=== PATIENT | female | born 1955 | race Hispanic/Latino ===

== ENCOUNTER 2025-07-16 00:47 | Day surgery (SDC) | payer MEDICARE, MEDICAID, SELFPAY ==
--- OUTSIDE RECORDS SUMMARY | 2015-11-24 10:00 | XMS_ITS | Continuity of Care Document ---
Author Organization [facility] Address [address] [place] [address] Phone Care Team Providers Care Automotive Hardware Engineer Name Role Phone Unavailable Unavailable Unavailable Unavailable Unavailable Unavailable Allergies, Adverse Reactions, Alerts Substance Reaction Status Criticality ibuprofen HIVES(moderate) Active No Informati on Procedures Procedure Date Dental prophylaxis adult Extraction erupted tooth or exposed root Extraction erupted tooth or exposed root Surgical removal of residual roots Dental prophylaxis adult Full [facility] Series Of Radiographic Image s Dental Panoramic Radiographic Image Comprehensve oral evaluation Advance Directives Directive Yes / No Effective Date File Name No Information Encounters Encounter Description Practice Location Reason(s) For Visit Diagnoses Date Provider Providers Copied on Encounter [facility], [address], [place], [place], [id number] , [place] tel: [phone] [facility] Acute gingivitis, plaque inducedPeriapical abscess with sinusImpacted teeth 6 No Information [facility], [address], [place], [place], [id number] , [place] tel: [phone] [facility] No Information 6 No Information [facility], [address], [place], [place], [id number] , [place] tel: [phone] [facility] Encounter for dental exam and cleaning w abnormal findingsDental caries, unspecified 5 No Information [facility], [address], [place], [place], [id number] , [place] tel: [phone] Care Guidelines Tru-0 1-190 1 No Information Family History Family Member Type Diagnosis Age At Onset No Information Payers Payer name Insurance type Covered republican ID Authoriza tion(s) No Information Social History Type Description Quantity Date Captured Comments Sex Female Smoking Status No Information Chief Complaint And Reason For Visit No Information Reason For Referral Reason For Referral No Information History Of Present Illness Encounter Date Complaint History Of Prese nt Illness No Information Functional Status Date Functional Assessmen t No Information Instructions Date Instruction Additional Infor mation No Information Assessments Type Assessment Date No Information Patient Care Teams Name Effective Dates (start - stop) Status Members No Information
[2025-07-01 12:54] VITALS: BMI 26.7
--- OUTSIDE RECORDS SUMMARY | 2025-07-16 00:50 | XMS_ITS | Clinical Summary ---
Author Organization [facility] Address [address] [place] [address] Care Team Providers Care Dough Puncher Name Role Phone Unavailable Primary Care Provider Unavailabl e Social History Tobacco Use Types Packs/Day Years Used Date Smoking Tobacco: Never Assessed Comments Unknown Sex and Gender Information Value Date Recorded Sex Assigned at Not on file Legal Sex Female 1:58 PM CDT Gender Identity Not on file Sexual Orientation Not on file Plan of Treatment Health Maintenance Due Date Last Done Comments Colorectal Cancer Screening Colonoscopy (10 Years) 1956 Hepatitis C 1974 DTaP, Tdap and Td Vaccines ( 1 - Tdap) 1975 Mammogram Screening 1996 Pneumococcal Vaccine: 50+ Ye ars (1 of 1 - PCV) 2006 Zoster Vaccines (1 of 2) 2006 Dexa Scan (General) 2021 COVID-19 Vaccine ( - 2023-2 5 season) 2024 RSV Immunization or 60+ Years (1 - 1-dose 75+ series) 2031 Meningococcal B Vaccine Aged Out No l onger eligible based on patient's age to complete this topic Meningococcal Vaccine Aged Out No monica emma eligible based on patient's age to complete this topic RSV Immunizations Under 20 Months Aged Out No longer eligible based on patient's age to complete this topic
--- OUTSIDE RECORDS SUMMARY | 2025-07-16 00:50 | XMS_ITS | Clinical Summary ---
Author Organization [facility] Address [address] [place] [address] Care Team Providers Care Complex Director Name Role Phone Fidelina Bradshaw Primary Care Provider [phone] Allergies Active Allergy Reactions Criticality Noted Date Comments Aspirin Rash Medium 08/24/2022 Ibuprofen Rash Medium 01/18/2022 Medications atorvastatin (LIPITOR) 20 mg tablet Take 20 mg by mouth nightly Active losartan (COZAAR) 25 mg tablet Take 25 mg by mouth nightly Active phenazopyridine (Pyridium) 100 mg tablet Take 1 tablet (100 mg total) by mouth 3 (three) times a day as needed for urinary pain for up to 30 doses 30 tablet 01/28/2022 Active oxybutynin XL (DITROPAN-XL) 10 mg 24 hr tablet Take 1 tablet (10 mg total) by mouth daily 90 tablet 3 08/24/2022 Active Active Problems Problem Noted Date Diagnosed Date Ureteral stone with hydronephrosis 01/18/2022 Surgical History Surgery Date Site/Laterality Comments APPENDECTOMY CYSTOSCOPY W/ URETERAL STENT PLACEMENT Ri ght TUBAL LIGATION Medical History Medical History Date Comments HTN (hypertension) Hyperlipidemia Sleep apnea not offically di agnosed Kidney stone Blood pressure abnormally low af ter surgery GERD (gastroesophageal reflux disease) Wears dentures Anemia Social History Tobacco Use Types Packs/Day Years Used Date Smoking Tobacco: Never AUDIT-C Answer Date Recorded Q1: How often do you have a drink containing alc ohol? Never 02/01/2022 Average Number of Drinks Not on file 022 Q3: How often do you have si x or more drinks on one occasion? Never 02/01/2022 Comments Unknown Sex and Gender Information Value Date Recorded Sex Assigned at Not on file Legal Sex Female 9:03 AM VENEER SUPERVISOR Gender Identity Not on file Sexual Orientation Not on file Obstetrics History Last Filed Vital Signs Vital Sign Reading Time Taken Comments Blood Pressure 132/69 02/01/2022 2:25 PM CDT Pulse 65 02/01/2022 2:25 PM CDT Temperature 36.1 C (97 F) 02/01/2022 2:25 PM CDT Respiratory Rate 18 02/01/2022 2:25 PM CDT Oxygen Saturation 99% 02/01/2022 2:25 PM CDT Inhaled Oxygen Concentration - - Weight 80 kg (176 lb 5.9 oz) 01/18/2022 9:11 AM VENEER SUPERVISOR Height 170.2 cm (5' 7) 01/18/2022 9:11 AM VENEER SUPERVISOR Body Mass Index 27.62 01/18/2022 9:11 AM VENEER SUPERVISOR Plan of Treatment Health Maintenance Due Date Last Done Comments Breast Cancer Screening-Mammogram 1955 Colon Cancer Screening-Colonoscopy 1955 Depression Screening 1955 Osteoporosis Screening-Bone Density Scan 1956 Hepatitis B Screening 1974 Pneumococcal vaccine 65+ (1 of 1 - PCV) 2006 Zoster Vaccine (1 of 2) 2006 DTaP/Tdap/Td Vaccine (1 - Tdap) 10/03/2014 4 Well Visit 65+ 2021 Fall Risk Assessment 01/31/2023 01/31/2022 Covid-19 Vaccine (3 - season) 2024, 01/15/2021 Influenza Vaccine (#1) 2025 10/02/2014 Hepatitis C Screening Completed 01/21/2022 Medical Devices Explanted Type Area Stone Unloader Device Identifier Shelf Expiration Date Model / Serial / Lot [employer] [id number] Universa 6fr 26cm Radiopaque Positioner Monofilament Tether 2 - [id number] Implanted:Qty: 1 on 01/18/2022 by Tristan Angel MD at [facility] Explanted:Qty: 1 on 02/01/2022 by Tristan Angel MD at [facility] Right: [employer] [place] Miguel [place] [id number] 08/06/2024 [id number] / / [id number] Procedures Procedure Name Priority Date/Time Associated Diagnosis Comments HEPATITIS PANEL, ACUTE Add-On 01/21/2022 12:33 PM VENEER SUPERVISOR from Last 3 Months or Most Recently Relevant to Health Maintenance Results * Hepatitis panel, acute (01/21/2022 12:33 PM VENEER SUPERVISOR) Hep A IgM Nonreactive Nonreactive [facility]ALANI Comment: Interpretive Data: If Hep A IgM Ab is reported as Equivocal, a new sample should be drawn in two weeks for testing. Current interpretive data was last revised on 20. Hep B core IgM Nonreactive Nonreactive KALANI Comment: Interpretive Data If HepB Core IgM Ab is reported as Equivocal, a new sample should be drawn in two weeks for testing. Current interpretive data was last revised on 20. Testing performed by: [facility], [address] [place]., [address] Hep C Ab Nonreactive Nonreactive KALANI Comment: Interpretive Data Nonreactive: Antibodies to HCV not detected. Does NOT exclude the possibility of recent exposure to HCV. Equivocal: Equivocal for HCV antibodies. Supplemental molecular testing will be automatically performed to determine infection status in accordance with current CDC screening recommendations. Reactive: Positive for HCV antibodies. This may represent current or past HCV infection. Supplemental molecular testing will be automatically performed to determine current infection status in accordance with current CDC screening recommendations. Interpretive data was last revised on 2020. Testing performed by: [address] [address] HepBsAg Nonreactive Nonreactive KALANI Comment:Testing performed by : [address] [address] Blood 01/21/2022 12:3 3 PM VENEER SUPERVISOR 01/21/2022 1:04 PM VENEER SUPERVISOR Sky Priest MD LAB MICROBIOLOGY - GENERAL ORDERABLES Edited Result - Final [facility] [place] [address] [facility] [place] [address] from Last 3 Months or Most Recently Relevant to Health Maintenance Insurance IDPA [facility] MEDICARE ADVANTAGE IDPA MEDICARE MEDICARE [facility] Advance Directives For more information, please contact: [phone] * Full Code (Latest Code Status on File) Date Activated Date Inactivated Comments 01/18/2022 5:45 PM 01/22/2022 4:36 PM Care Teams Complex Director Relationship Specialty Start [place] [address] [place] [id number] PCP - General Physician Motor Vehicle Examiner 02/02/22
--- OUTSIDE RECORDS SUMMARY | 2025-07-16 00:50 | XMS_ITS | Clinical Summary ---
Author Organization [facility] Address [address] [place] [address] Care Team Providers Care Senior Publications Specialist Name Role Phone Unavailable Primary Care Provider Unavailabl e Immunizations Immunization Administration Dates Next Due Covid-19 Vaccine, Vector-nr, Rs-ad26, Pf, 0.5 Ml (Scratch Hard/Kamelio&Kamelio) 10/26/2021 Social History Tobacco Use Types Packs/Day Years Used Date Smoking Tobacco: Never Assessed Comments Unknown Sex and Gender Information Value Date Recorded Sex Assigned at Not on file Legal Sex Female 6:41 PM DIRECTOR [employer] Gender Identity Not on file Sexual Orientation Not on file Plan of Treatment Health Maintenance Due Date Last Done Comments Hepatitis C Virus (HCV) Screening 1955 TdaP Immunization 1956 Cologuard 2001 Colonoscopy 2001 Colorectal Cancer Screening 2001 Immunochemical Fecal Occult Blood 2001 Pneumococcal Immunization (5 0+ years) (1 of 1 - PCV) 2006 Zoster Immunization (1 of 2) 2006 SARS-COV-2 Immunization ( - season) 2024 10/26/2021, 01/15/2021 Influenza Immunization (#1) 2025 10/02/2014 Respiratory Syncytial Virus (RSV) Immunization (Adult) (1 - 1-dose 75+ series) 2031 DTaP/Tdap/Td Immunization Discontinued 10/02/2014 Hepatitis B Immunization Aged Out No longer eligible based on patient's age to complete this topic Human Papillomavirus (HPV) Immunization Aged Out No longer eligible based on patient's age to complete this topic Meningococcal Immunization (ACWY) Aged Out No longer eligible based on patient's age to complete this topic Rotavirus Immunization Aged Out No lo nger eligible based on patient's age to complete this topic
[2025-07-16 11:40] VITALS: BP 130/76; PULSE 75; RESP 18; TEMP 36.1; O2SAT 99
--- NOTE | 2025-07-16 11:55 | WPDANESEPPF ---
Anes - Initial Pre Proc Eval Procedure: Operation Date: 07/16/25 13:00 Proposed Procedures p EGD & Diagnostic Colonoscopy - Shaw Aviles MD Date/Time: 07/16/25 11:55 Surgeon: Shaw Aviles MD Pre Op Diagnosis: Iron deficiency anemia, unspecified Patient Data Age: 69 Gender: F Height: 1.7 m Weight: 77.5 kg Last Vital Signs Temp 96.9 F L 07/16/25 11:40 Pulse 75 07/16/25 11:40 Resp 18 07/16/25 11:40 BP 130/76 07/16/25 11:40 Pulse Ox 99 07/16/25 11:40 O2 Del Method Room Air 07/16/25 11:40 Allergies Allergy/AdvReac Type Severity Reaction Status Date / Time ibuprofen (From Advil) Allergy Intermediate Hives Verified 07/16/25 11:51 Home Medications ?Medication ?Instructions ?Recorded ?Confirmed ?Type atorvastatin 80 mg tablet 80 mg PO QPM 07/01/25 07/16/25 History ferrous sulfate 325 mg (65 mg 325 mg PO DAILY 07/01/25 07/16/25 History iron) tablet (FeroSul) Patient hx anesthesia problems: none Family hx anesthesia problems: none Results Review: All pre-operative results and documents have been reviewed as part of the pre-operative evaluation. [facility] Past Medical History Medical History (Updated 07/16/25 @ 11:58 by Tru Ferguson Jr., CRNA) Overweight (BMI 25.0-29.9) Migraines HERBER (obstructive sleep apnea) Hypertension Hyperlipidemia Social History Social History Smoking status: Never smoker Living arrangements: with family Anes - Eval Final PreProcedure Day of Procedure 07/16/25 11:55 Patient weight: overweight Heart: regular rate and rhythm Lungs: clear to auscultation Airway: Mallampati scale class II Neurological: alert and oriented Last oral intake: >/= 8 hours ASA classification: III Emergent: no Anesthetic plan: proceed Anesthesia type and monitoring: general GIVS and standard monitoring Results Review: All pre-operative results and documents have been reviewed as part of the pre-operative evaluation. Informed Consent: The patient's anesthetic plan and its attendant risks and benefits were discussed with the patient/family/POA. Questions were solicited and answers provided to the satisfaction of the patient/family/POA.
[2025-07-16 11:56] VITALS: BMI 26.8
--- NOTE | 2025-07-16 12:04 | PM.IMHP ---
H&P: HPI History of Present Illness Date/Time: 07/16/25 12:04 Chief Complaint: Anemia Narrative: the patient is referred for the evaluation of occult bleeding and severe anemia, requiring transfusions due to hemoglobin around 7.0. Unfortunately, there are no records in our hospital, and this information is provided by her daughter. The patient denies melena, rectal bleeding, hematochezia, hematemesis, nausea, vomiting, heartburn, dysphagia, abdominal pain or change in bowel habits. She had a colonoscopy about 5 years ago, reportedly normal. She never had an EGD. Review of Systems Review of Systems: All systems reviewed & are unremarkable except as noted in HPI and below PMFSH Past Medical History Medical History (Updated 07/16/25 @ 12:06 by Shaw Aviles MD) Overweight (BMI 25.0-29.9) Migraines HERBER (obstructive sleep apnea) Hypertension Hyperlipidemia Social History Social History Smoking status: Never smoker Living arrangements: with family Meds Home Medications and Allergies Home Medications ?Medication ?Instructions ?Recorded ?Confirmed ?Type atorvastatin 80 mg tablet 80 mg PO QPM 07/01/25 07/16/25 History ferrous sulfate 325 mg (65 mg 325 mg PO DAILY 07/01/25 07/16/25 History iron) tablet (FeroSul) Allergies Allergy/AdvReac Type Severity Reaction Status Date / Time ibuprofen (From Advil) Allergy Intermediate Hives Verified 07/16/25 11:51 Vital Signs Vital Signs - 24 hr 07/16/25 11:40 Temperature 96.9 F L Pulse Rate 75 Respiratory Rate 18 Blood Pressure 130/76 Pulse Oximetry 99 Oxygen Delivery Room Air Exam Const: General: cooperative and healthy appearing Resp: Effort & Inspection: normal respiratory effort and able to speak in complete sentences Auscultation: clear to auscultation bilaterally Cardio: Rate: regular rate Rhythm: regular rhythm GI: Inspection: normal to inspection GI Palp: No No hepatosplenomegaly present Auscultation: normal bowel sounds Rectal Exam: deferred Skin: General skin exam: normal color Psych: Appearance: grossly normal Mental Status: mental status grossly normal Assessment and Plan Assessment and plan (1) Anemia: Code(s): D64.9 - Anemia, unspecified Status: Acute Assessment and Plan: The patient is deemed a good candidate for the procedures. Consent signed. Will proceed.
[2025-07-16] MEDS: SIMETHICONE ORAL SUSPENSION 20 MG/0.3 ML 30 ML BOTTLE 1.8 ML PO (12:05)
[2025-07-16] MEDS: LACTATED RINGERS 1,000 ML 150 ML IV CONT (12:05)
--- NOTE | 2025-07-16 12:18 | S_PTH ---
PATIENT: Lety Quintanilla LOC: [facility] [place]#:[id number] AGE/SX: 69/F ROOM: RE07/16/[address]: Shaw Aviles MD : 1955 BED: DIS: 07/16/2025 SPEC #: [id number] RECD: 07/16/25 13:19 STATUS: MORENA REJusten #: [id number] ANNA: 07/16/25 12:[address]: Shaw Aviles DEPT: [facility] Surgical RECD BY: Orin Smith ENTERED: 07/16/25 13:19 SP TYPE: Surgical OTHR DR: Beulah DoeMD Tissues: A - Gastric Biopsy B - Gastric Biopsy Procedures: Hematoxylin and Eosin Stain Gross and Microscopic Level 4
--- NOTE | 2025-07-16 12:21 | SUR.OPER ---
egd ended at 1216 and colonoscopy started at 1221. note that prior to procedure pts ring removed and carried to daughter waiting in postop.
[2025-07-16 12:35] VITALS: BP 98/57; PULSE 59; RESP 18; O2SAT 100
[2025-07-16 12:45] VITALS: BP 95/56; PULSE 58; RESP 17; O2SAT 100
[2025-07-16 12:55] VITALS: BP 121/78; PULSE 61; RESP 15; O2SAT 98
== END 2025-07-16 13:08 | disposition home or self-care (01) ==
PROVIDERS: PCP Emergency Medicine; Referring Provider Emergency Medicine; Visit Provider Internal Medicine Gastroenterology
PROC: 0DJ08ZZ Inspection of Upper Intestinal Tract, Via Natural or Artificial Opening Endoscopic (ICD-10-PCS; CPT 45378; principal; 2025-07-16 13:00)
DX: D50.9 Iron deficiency anemia, unspecified (principal); K29.30 Chronic superficial gastritis without bleeding; K57.30 Diverticulosis of large intestine without perforation or abscess without bleeding; K64.8 Other hemorrhoids
CPT/HCPCS: 45378; 43239; 88305; J2003; J2704; J7120

== ENCOUNTER 2025-09-04 05:45 | Outpatient (CLI) | payer MEDICARE, MEDICAID, SELFPAY ==
--- NOTE | 2025-08-25 14:56 | SUR.PREOP ---
Spoke with patient's daughter, Rhea, in regards to the scheduled givens capsule endoscopy. Instructions are being mailed to the patient and I went through them with the daughter.
[2025-09-04 06:29] VITALS: BP 141/76; PULSE 77; RESP 18; TEMP 36.5; O2SAT 100
[2025-09-04] MEDS: SIMETHICONE ORAL SUSPENSION 20 MG/0.3 ML 30 ML BOTTLE 1.8 ML PO (06:34)
--- NOTE | 2025-09-04 06:34 | SUR.PREOP ---
Patient brought to GI Lab. Instructions for patient undergoing Capsule Endoscopy reviewed with patient. Consent form signed. Sensor array applied to patient's abdomen and connected to recorded. Patient swallowed capsule with 14 ozs of water infused with Simethicone. Patient instructed they may have clear liquids at 0815 this AM and eat or drink at 1015 this AM. Patient instructed to return to GI Lab at 1500 this afternoon for removal of recording device and to call [phone] or to return to the hospital if any nausea and vomiting or abdominal pain is experienced.
--- NOTE | 2025-09-04 14:36 | SUR.OPER ---
Patient returned to the GI Lab at 1430 for recorder box removal. Patient voiced no complaints. States they have understanding of instructions. Patient left ambulatory.
== END 2025-09-04 05:46 | disposition home or self-care (01) ==
PROVIDERS: PCP Emergency Medicine; Referring Provider Internal Medicine Gastroenterology; Visit Provider Internal Medicine Gastroenterology
PROC: (CPT 91110; principal; 2025-09-04 07:00)
DX: D64.9 Anemia, unspecified (principal)
CPT/HCPCS: 91110